=== PATIENT | male | born 1970 | race African-American/Black ===

== ENCOUNTER 2022-10-23 | Emergency (ER) | payer SELFPAY ==
[2022-10-23] MEDS ORDERED: HYDROcodone/Acetaminophen 5/325 mg Tablet ONE (01:26)
== END 2022-10-23 01:30 | disposition home or self-care (01) ==
LOC: ERS
DX: M16.12 Unilateral primary osteoarthritis, left hip (principal); I10 Essential (primary) hypertension; F17.210 Nicotine dependence, cigarettes, uncomplicated
CPT/HCPCS: 99283

== ENCOUNTER 2022-11-26 06:51 | Emergency (ER) | payer SELFPAY ==
[2022-11-26] MEDS ORDERED: Ketorolac Tromethamine 30 MG/ML VIAL ONE (07:22)
== END 2022-11-26 07:35 | disposition home or self-care (01) ==
LOC: ERS 06:51
DX: G89.29 Other chronic pain (principal); M25.552 Pain in left hip; F17.210 Nicotine dependence, cigarettes, uncomplicated
CPT/HCPCS: 96372; 99283; J1885